=== PATIENT | male | born 1950 | race Caucasian/White ===

== ENCOUNTER 2022-07-04 06:42 | Inpatient (IN) | payer MEDICARE, OTHER ==
[~2022-07-04] VITALS: Ht 162.6 cm; Wt 97.5 kg
--- NOTE | 2022-07-04 06:53 | NUR ---
[id number] FROM HOME C/O FEELING WEAK AFTER WAKING UP THIS MORNING AND USING THE RESTROOM AROUND 5 AM. PATIENT IS A/O X 4, RR EVEN AND UNLABORED NO SOB NOTED. PATIENT TAKEN TO ER BED 08, CONNECTED TO CARDIAC AND POX MONITORS. PATIENT AMBULATES WITH STEADY GAIT, NO ACUTE DISTRESS NOTED. WILL CONTINUE TO MONITOR.
--- NOTE | 2022-07-04 07:04 | NUR ---
PT AMBULATORY WITH STEADY GAIT WITH STANDBY ASSIST
--- NOTE | 2022-07-04 07:05 | NUR ---
ATTEMPTED IV ACCESS WITH NO SUCCESS AT THIS TIME; WILL ENDORSE TO DAY SHIFT RN. SIGN BUILDER SUPERVISOR AWARE NO BLOOD DRAW AT THIS TIME.
--- NOTE | 2022-07-04 07:09 | NUR ---
COVID ANTIGEN AND URINE COLLECTED AND SENT TO LAB
--- NOTE | 2022-07-04 07:10 | NUR ---
PT TAKEN TO CT VIA SILVIA
--- NOTE | 2022-07-04 07:42 | NUR ---
MOVE SHEET SUBMITTED.
[2022-07-04 07:53] LABS: CALCIUM, SERUM 8.5 mg/dL (8.5-10.1); CARBON DIOXIDE 28 mmol/L (21-32); CHLORIDE 105 mmol/L (98-107); GLUCOSE 129 mg/dL (74-106); POTASSIUM 4.2 mmol/L (3.5-5.1); SODIUM SERUM 140 mmol/L (136-145); UREA NITROGEN, BLOOD 12 mg/dL (7-18)
[2022-07-04 07:57] LABS: BASOPHILS # (AUTO) 0.1 K/uL (0.0-0.2); BASOPHILS % (AUTO) 1.2 % (0.0-2.0); EOSINOPHILS % (AUTO) 2.9 % (0.0-6.0); HEMATOCRIT 44 % (39-51); HEMOGLOBIN 14.7 g/dL (13.5-17.5); LYMPHOCYTES # (AUTO) 1.4 K/uL (0.8-4.8); LYMPHOCYTES % (AUTO) 22.7 % (20.0-44.0); MEAN CORPUSCULAR HGB CONC 34 g/dl (31.0-36.0); MEAN CORPUSCULAR VOLUME 88 fL (80-96); MONOCYTES # (AUTO) 0.6 K/uL (0.1-1.30); MONOCYTES % (AUTO) 9.2 % (2.0-12.0); PLATELET COUNT (AUTO) 198 K/uL (150-450); RED BLOOD CELL COUNT(AUTO) 4.93 MIL/uL (4.5-6.0); WHITE BLOOD COUNT (AUTO) 6.2 K/uL (4.3-11.0)
[2022-07-04 08:02] LABS: BILIRUBIN,URINE NEGATIVE (NEGATIVE); COLOR,URINE YELLOW (YELLOW); LEUKOCYTE ESTERASE ,URINE NEGATIVE (NEGATIVE); NITRITE, URINE NEGATIVE (NEGATIVE); PROTEIN,URINE NEGATIVE (NEGATIVE); UGLUCOSE NEGATIVE (NEGATIVE); UROBILINOGEN,URINE 0.2 EU/dL (0.2)
[2022-07-04] MEDS ORDERED: IOHEXOL-350 100 ML VIAL IV ONE (08:27)
[2022-07-04] MEDS ORDERED: IV NS 0.9% 250 ML IV ONE (08:27)
[2022-07-04] MEDS ORDERED: FOLI0.4T6 PO (08:28)
[2022-07-04] MEDS ORDERED: ATOR40TA PO (08:28)
[2022-07-04] MEDS ORDERED: ICOS1CAP PO (08:28)
[2022-07-04] MEDS ORDERED: OLME1TAB90 PO (08:28)
[2022-07-04] MEDS ORDERED: OMEP20CA15 PO (08:28)
[2022-07-04] MEDS ORDERED: ASPI-1420 PO (08:28)
[2022-07-04] MEDS ORDERED: FERR325T24 PO (08:28)
[2022-07-04] MEDS ORDERED: FINA5TAB11 PO (08:28)
[2022-07-04] MEDS ORDERED: ASPIRIN 81 MG TAB.CHEW PO ONE (08:30)
--- NOTE | 2022-07-04 08:35 | NUR ---
EPIC PAGED, AWAITING DR MARQUES CALL BACK.
[2022-07-04] MEDS ORDERED: ASPIRIN 81 MG TAB.CHEW ONE (08:37)
--- NOTE | 2022-07-04 09:44 | NUR ---
DR. GARCIA AT BEDSIDE FOR EVAL.
--- NOTE | 2022-07-04 09:50 | NUR ---
NURSING SUP CALLED FOR TELE BED
[2022-07-04] MEDS ORDERED: hydrALAZINE HCL IV 20 MG VIAL IV PRN (10:30)
[2022-07-04] MEDS ORDERED: ENOXAPARIN SODIUM 40 MG/0.4 ML DISP.SYRIN SQ ONE ×2 (11:00→12:09)
--- NOTE | 2022-07-04 11:08 | NUR ---
NEWS LIBRARY DIRECTOR AT BEDSIDE FOR BLOOD DRAW
--- NOTE | 2022-07-04 11:45 | NUR ---
Bag Grader Consult SW received a consult request for a stroke protocol. Pt. is a 72 y.o. white male who was seen in the ED for TIA. BAYLEE met with pt. at bedside. PT.s , Merly Martines ([phone]), is in the room during assessment and supported with some translation in Vietnamese. Pt. appears well groomed and is alert and oriented x4 and was cooperative throughout assessment. Pt. made consistent eye contact, had a cheerful mood, and had a full affect. Per pt. report they are ambulatory and does not require assistance with walking. Pt. stated he is independent with his ADLs. Pt. reported he is receiving financial assistance ([employer] and [employer]). Pt. reported no hx of substance abuse. Pt. reported no hx of psychiatric dx and no visual or auditory hallucinations. BAYLEE assessed for suicidal and homicidal ideation in which pt. stated he was not currently having SI or HI. Pt. stated she was living at home with his at [address] [place] [address]. BAYLEE inquired re persons of contact, pt. was able to confirm demographic and contact information, pt.s is his person of contact. DC plan: When asked about pt.s plans after being discharged, pt. reported he will be returning to his home in [place] after discharge. BAYLEE provided pt. with the stroke empowerment resource packet and senior resources guide in which pt. accepted them. BAYLEE administered the PHQ9 post stroke depression scale, pt. scored a 2 therefore, theres no need for a psych consult at this time. BAYLEE relayed information to Dr. Pepper. ABUSE PREVENTION: ELDER ABUSE HOTLINE (23/03) ADULT PROTECTIVE SERVICES HOTLINE LONG-TERM CARE [facility] Region AREA ON AGING (HOTLINE) ADULT DAY HEALTH CARE CARE CENTERS: Private pay or Medi-rudolph funded adult day care [place] [facility] , [facility] , [facility] , [facility] Adult Day Health Care , [facility] Adult Day Health Care , [facility] Adult [facility] Center , [place] [facility] , Chandan Vo [facility] , Emblem ALZHEIMERS DISEASE/DEMENTIA: Alzheimers Association Helpline [facility] www.alz.org/[facility] Department of Aging www.lacity.org Family Caregiver [place] www.caregiver.org [place] Caregiver Resources Center/Family Support www.losangelesscr.org CANCER RESOURCES: [place] Cancer Society www.cancer.org Cancer Support Community www.CancerSupportVvsb.org: CancerCare www.cancercare.org [facility] Cancer Support [place] www.[facility].org [facility] HEALTH ASSOCIATIONS: AARP www.aarp.org ALS Association (ask for Hanny) www.als.org British Diabetes Association www.diabetes.org British Heart Association www.heart.org British Lung Association www.lungusa.org British Parkinson Disease Association www.apdaparkinson.org British [place] , www.redcross.org Arthritis Foundation www.arthritis.org Crohns & Colitis Foundation of British www.ccfa.org/chapters/endy National Multiple Sclerosis Society www.nationalmssociety.org Myasthenia Gravis Foundation www.myasthenia-ca.org National Stroke Association www.stroke.org CONSERVATORSHIP & GUARDIANSHIP: AARP Lois Macias Legal Services Center for Health Care Rights Eldercare Information and Referral Cigar Machine Feeder Foundation [facility]: [facility] Bar Referral Service [facility] Legal Services Office of the Public Guardian [place] EYESIGHT DISORDER RESOURCES: British Macular Degeneration Foundation [facility] www.[facility].org GRIEF AND BEREAVEMENT RESOURCES: [facility] , [facility] THE [facility] , [facility] Bere[facility]ment Center , [place] HEARING DISORDER RESOURCES: [place] Telephone Access Program Deaf and Disabled Telecommunications Program www.ddtp.cpu.ca.gov HearRx Hearing Centers (Dike) Better Hearing Systems , [place] GLAD ([facility] Agency on Deafness) V/ TTY; Stripper Color , [facility] Hearing [facility] -low income hearing aid assistance www.Exclusive Networkshearingfoundation.org [place] [facility] , [place] HELP AT HOME CAREGIVER SUPPORT: In Home Support Services (Must have Medi-Rudolph to be eligible) *Ask for a list of agencies that provide services to assist with care in the home. Local Senior Centers also have listings of care providers. HOME SAFETY MODIFICATIONS AND EQUIPMENT: Senior centers have additional referrals. [place] Housing and Community Investment Dept. Handyworker Program (low income) or Visit http://hcidla.lacity.org/iwh-evyuyx-yw for more information National Seating and Mobility and/or ; Forever Active www.foreveractivemed.com Stay Home Safe www.StayhomGranite Investment Group.Lightspeed Audio Labs LIFE ALERT RESPONSE SYSTEM: Sapholine Services 892-577-2181 www. ArtusLabs Life Alert 888-020-8194 www.Pathway Lending Life Station 680-777-3049 www.Flodesign Sonics.Lightspeed Audio Labs Safe Return 362-765-4468 www.alz.or/safereturn Cell Phones for Seniors www.Cervel Neurotech MEALS AND FOOD PROGRAMS: [place] Meals on Wheels [phone] [place] Meals on Wheels [phone] [facility] [phone] [place] to the Homebound [phone] [place] to the Homebound [phone] [facility] to the Homebound [phone] [facility] to the Homebound [phone] [facility] [phone] [facility] [phone] ONE Generation [phone] [facility] [phone] [facility] [phone] Meals on Wheels [phone] For all ages: $6.85/ meal w side. Delivered M-F from 10 am-1pm. Application and payment is done over the phone. Frozen meals available for weekends. Emergency Food Coalsan [facility] [phone] [facility] Bag Grader [phone] [facility] [phone] [facility]- Brown bag lunches [phone] [facility] [phone] MEAL/GROCERY DELIVERY PROGRAMS: [facility] Meals [phone]- [facility] [phone]- [facility] Magic Kitchen [phone] Moms Meals [phone] (ask Hernandez for Discount Select grocery stores may provide delivery. MEDICAL INSURANCE SUPPORT SERVICES: Center for Health Care Rights [phone] Health Insurance Counseling/Advocacy Programs (HICAP)-Must have Medicare. Offers counseling for Medi-Rudolph eligibility [phone] [facility] of Public Bag Grader 750-489-7524 www.[facility].ca.gov Medicare 169-536-6092 www.socialsecurity.org Social Security 490-586-5222 SENIOR ACTIVITY PROGRAMS: *Contact a local senior center, adult school, recreation facility or community college for education, fitness, recreation, and social programs. Aquatic Therapy and Adapted Exercise programs through [facility] [phone] Encore at [facility] [phone] www.[facility]/encore U- Senior Friends [phone] [place] Senior Programs 968-495-1336 www.oasisnet.org Suddenly 65 www..com SENIOR CENTERS: [facility] [phone] [facility] [phone] [facility] [phone] [facility] [phone] [facility] [phone] [facility] [phone] [facility] [phone] [facility] [phone] One Generation, [facility] [phone] [facility] [phone] [facility] [phone] [facility] [phone] [facility] [phone] TRANSPORTATION: Local [facility] Centers may have applications for transportation programs and additional resources. ACCESS Services [phone] Transportation for seniors and disabled persons 7 days a week requiring 254 hr. advance reservation. Must apply and register for program sergio eligible. CITY RIDE 684-901-1693 or [phone] Transportation for seniors and persons with ADA card/metro disabled card in the [facility]. M-F only. Must register for services. ONE GENERATION [phone] Serves 65 years + in conjunction with TastyNow.com ride program. Must be registered with both programs. A to B Transport [phone] Provides wheelchair/gurney van service. Adult Medical Transport [phone] Accepts [facility] with prior authorization. Care Van [phone] Provides wheelchair Transport. City Wide Transportation [phone] Provides gurney service Gentle Care [phone] Gurney Transport. [facility] Town Transportation [phone] wheelchair & gurney transport [facility] Transportation [phone] wheelchair & gurney transport [place] Non-Emergency Transport [phone] wheelchair & gurney transport [facility] Living [place] [phone] Short Term Transportation primarily for adults with disabilities on social security income. Nominal fee may apply and a reservation is required. City Cab [phone] or [phone] Safe Trade [employer] [facility] [phone] [place] [address] Referral Services -[phone] For additional programs & services VETERANS RESOURCES: Submissions for Aid and Attendance should be done directly to Federal VA office locatd at : [facility] [id number] [place] [address]. [facility] [phone] National Caregiver Support Line [phone] Rudolph [facility] Veterans Services Field Office [phone] [place] Department of Affairs [phone] Pension Information [phone]
[2022-07-04] MEDS: BLOOD SUGAR DIAGNOSTIC 1 EACH STRIP IN SCH ×5 (12:00→23:19)
[2022-07-04 12:14] LABS: THYROID STIMULATING HORMONE 3.967 uIU/mL (0.358-3.74)
--- NOTE | 2022-07-04 12:21 | NUR ---
PT OFFERED MEAL TRAY, STATES NOT HUNGRY AT THE MOMENT.
--- NOTE | 2022-07-04 15:20 | NUR ---
BED 325-2
--- NOTE | 2022-07-04 15:30 | NUR ---
PUBLIC ADDRESS SYSTEM INSTALLERASPHALT WORKER NOTES: PT CAME TO UNIT VIA GURNEY. AWAKE, ALERT, ORIENTED X4. AMBULATORY WITH BATHROOM PRIVILEGE. ABLE TO MAKE NEEDS KNOWN, AT BEDSIDE. BP- 149/76, HR -79, TEMP- 98.0, RR-18, O2 SAT 99% ON RA. NO S/S OF SOB AND ACUTE DISTRESS AT THE MOMENT, DENIES PAIN. IV ACCESS AT R FA # 22 AND L FA #22 BOTH SALINE LOCKED, PATENT AND FLUSHING WELL. TELE MONITOR READS SR, HR- 76. SKIN IS INTACT, ORIENTED TO UNIT AND STAFF. SAFETY MEASURES IN PLACE, CALL LIGHT AND TABLE WITHIN REACH. ENCOURAGE PT TO USE CALL LIGHT FOR ASSISTANCE, PT VERBALIZED UNDERSTANDING. ENDORSED TO PM SHIFT.
--- NOTE | 2022-07-04 15:30 | NUR ---
REPORT GIVENT TO JONATHON LUNA. AWAITNG TRANSFER TO FLOOR.
[2022-07-04] MEDS: CLOPIDOGREL BISULFATE 75 MG TABLET PO SCH (17:42)
--- NOTE | 2022-07-04 19:41 | NUR ---
RN OPENING NOTE PATIENT AWAKE IN BED, AT BEDSIDE. A/OX4. NO S/S OF DISTRESS, BREATHING WITHOUT DIFFICULTY ON ROOM AIR. GRIFFIN #20 SL AND OWEN #20 SL INTACT AND PATENT. TELE READS SR 73. SAFETY MEASURES IN PLACE: BED LOCKED IN LOWEST POSITION, RAILS UP X2, CALL KING WITHIN REACH. WILL CONTINUE TO MONITOR PATIENT.
[2022-07-04 20:00] VITALS: BP 154/96
--- NOTE | 2022-07-04 20:18 | NUR ---
AUTOMOBILE TAILLIGHT ASSEMBLER CLOSING NOTES: NO SIGNIFICANT CHANGED SINCE ADMISSION, ENDORSED TO PM SHIFT.
[2022-07-04] MEDS ORDERED: SIMVASTATIN 40 MG TABLET PO SCH (22:00)
[2022-07-04] MEDS ORDERED: ATORVASTATIN 40 MG TABLET PO SCH (22:00)
[2022-07-05] VITALS: BP 146/90
[2022-07-05 04:00] VITALS: BP 147/86
[2022-07-05 06:23] LABS: BASOPHILS # (AUTO) 0.1 K/uL (0.0-0.2); EOSINOPHILS % (AUTO) 3.9 % (0.0-6.0); HEMATOCRIT 42 % (39-51); HEMOGLOBIN 14.2 g/dL (13.5-17.5); LYMPHOCYTES # (AUTO) 1.8 K/uL (0.8-4.8); LYMPHOCYTES % (AUTO) 31.3 % (20.0-44.0); MEAN CORPUSCULAR HGB CONC 34 g/dl (31.0-36.0); MEAN CORPUSCULAR VOLUME 88 fL (80-96); MONOCYTES # (AUTO) 0.5 K/uL (0.1-1.30); MONOCYTES % (AUTO) 9.1 % (2.0-12.0); NEUTROPHILS # (AUTO) 3.1 K/uL (1.8-8.9); NEUTROPHILS % (AUTO) 54.7 % (43.0-81.0); PLATELET COUNT (AUTO) 175 K/uL (150-450); RED BLOOD CELL COUNT(AUTO) 4.76 MIL/uL (4.5-6.0); WHITE BLOOD COUNT (AUTO) 5.6 K/uL (4.3-11.0)
[2022-07-05] MEDS: BLOOD SUGAR DIAGNOSTIC 1 EACH STRIP IN SCH ×2 (06:38)
[2022-07-05 06:43] LABS: CALCIUM, SERUM 8.4 mg/dL (8.5-10.1); POTASSIUM 3.9 mmol/L (3.5-5.1)
--- NOTE | 2022-07-05 06:46 | NUR ---
RN CLOSING NOTE PATIENT ASLEEP IN BED. A/OX4. NO S/S OF DISTRESS, BREATHING WITHOUT DIFFICULTY ON ROOM AIR. OWEN #20 AND GRIFFIN - BOTH SL INTACT AND PATENT. TELE READS SR 61. SAFETY MEASURES IN PLACE: BED LOCKED AND AT LOWEST POSITION, RAILS UP X2, CALL KING WITHIN REACH. WILL ENDORSE TO NEXT SHIFT FOR PAMELA.
--- NOTE | 2022-07-05 07:30 | NUR ---
CHOIR TEACHER NOTES PT IN BED, AWAKE, ALERT AND ORIENTED, NO COMPLAINT OF PAIN OR ANY DISCOMFORT, NOT IN DISTRESS, RESPIRATIONS NORMAL AND NOT LABORED, CALL LIGHT WITHIN REACH, KEPT COMFORTABLE AND MANAGER FOREIGN BED.
[2022-07-05 08:00] VITALS: BP 141/88
[2022-07-05] MEDS ORDERED: FERROUS SULFATE (325 MG) 325 MG/TAB TABLET PO SCH (09:00)
[2022-07-05] MEDS ORDERED: PANTOPRAZOLE 40 MG TABLET.DR PO SCH (09:00)
[2022-07-05] MEDS ORDERED: FINASTERIDE (5 MG) 5 MG TABLET PO SCH (09:00)
[2022-07-05] MEDS ORDERED: ASPIRIN EC 81 MG TABLET.DR PO SCH (09:00)
[2022-07-05] MEDS: CLOPIDOGREL BISULFATE 75 MG TABLET PO SCH (09:04)
--- NOTE | 2022-07-05 12:00 | NUR ---
INSURANCE LOSS ASSESSOR NOTES PT AWAKE, ALERT AND ORIENTED, AMBULATES INSIDE HIS ROOM WITH STEADY GAIT, NO COMPLAINT OF PAIN, NOT IN DISTRESS, TOLERATES ROOM AIR, DISCHARGE ORDER GIVEN BY DR. GARCIA, DISCHARGE AND MEDICATION INSTRUCTIONS GIVEN TO PT AND SON, VERBALIZED UNDERSTANDING, BELONGINGS ACCOUNTED FOR, PT REFUSED SKIN PHOTOS, ASSISTED PT TO HOSPITAL LOBBY BY PERSONAL LINES ACCOUNT MANAGER'S, LEFT VIA WHEELCHAIR IN STABLE CONDITION. Addendum: 07/05/22 at 1218 by KINA ORLANDO RN PLEASE DISREGARD ABOVE NOTES, USER ERROR.
--- NOTE | 2022-07-05 12:00 | NUR ---
CAGER OPERATOR NOTES PT AWAKE, ALERT AND ORIENTED, AMBULATES INSIDE HIS ROOM WITH STEADY GAIT, NO COMPLAINT OF PAIN, NOT IN DISTRESS, TOLERATES ROOM AIR, DISCHARGE ORDER GIVEN BY DR. GARCIA, DISCHARGE AND MEDICATION INSTRUCTIONS GIVEN TO PT, VERBALIZED UNDERSTANDING, BELONGINGS ACCOUNTED FOR, PT REFUSED WHEELCHAIR ASSISTANCE, PT AMBULATES WITH STEADY GAIT, ACCOMPANIED PT TO HOSPITAL LOBBY, PT TO BE PICKED UP BY FAMILY MEMBER VIA PRIVATE CAR, IN STABLE CONDITION.
== END 2022-07-05 12:00 | disposition home or self-care (01) | DRG 65 ==
LOC: ER 06:48 → TRANSITION 11:53 → TELE 15:38
PROVIDERS: ADMIT Internal Medicine; ATTEND Internal Medicine
DX: I63.9 Cerebral infarction, unspecified (principal); G45.9 Transient cerebral ischemic attack, unspecified; Z20.822 Contact with and (suspected) exposure to COVID-19; Z79.82 Long term (current) use of aspirin; Z91.14 Patient's other noncompliance with medication regimen; Z85.72 Personal history of non-Hodgkin lymphomas; E66.01 Morbid (severe) obesity due to excess calories; F10.10 Alcohol abuse, uncomplicated; I10 Essential (primary) hypertension; Z87.891 Personal history of nicotine dependence; Z68.36 Body mass index [BMI] 36.0-36.9, adult; Y90.9 Presence of alcohol in blood, level not specified; R29.700 NIHSS score 0
CPT/HCPCS: 36415; 70450-TC; 70496-TC; 70498-TC; 71045-TC; 80048-TC; 82607-TC; 82962-TC; 83880; 84439-TC; 84443-TC; 84481; 84484-TC; 85025-TC; 85652-TC; 85730-TC; 87081-TC; 92526; 92611-TC; 93307-TC; 97112-TC; 97116-TC; 97530-TC; C9803; G0378; J1650; J7050; Q9967